=== PATIENT | male | born 1975 | race Caucasian/White ===

== ENCOUNTER 2017-05-23 09:11 | Emergency (ER) | payer OTHER, BC ==
[2017-05-23 09:14] VITALS: BP 122/37; PULSE 101; TEMP 98.2; BMI 21.7
[2017-05-23] MEDS ORDERED: IBUPROFEN 600 MG TABLET (FP) PO ONE ×2 (09:26→09:28)
--- NOTE | 2017-05-23 10:31 | PDOC ---
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 Hitting right side of lower back. Ambulatory to the ER. Nonradiating pain, no neurosensory deficits, no bowel or bladder difficulty incontinence or urinary retention, no saddle anesthesia, no footdrop. No history of IVDU or history of cancer. REVIEW OF SYSTEMS: GENERAL: Afebrile, denies any weakness RESPIRATORY: No cough, wheezing, or hemoptysis. CARDIAC: No chest pain or shortness of breath MUSCULOSKELETAL: Pain to generalized generalized lower back. No point tenderness. Pain worse on right than left. SKIN : No erythema, no bruising, no deformity. GI/: Denies any abdominal pain, no urinary difficulty, incontinence or urinary retention. RECTAL: Denies any difficulty this A.m. NEUROLOGICAL: Denies any numbness or tingling. No neurosensory deficits. PHYSICAL EXAM: GENERAL: The patient is awake, alert, and fully oriented, in no acute distress. RESPIRATORY: Lungs clear bilaterally, no rhonchi wheezes or crackles CARDIAC: S1-S2 audible, no murmur rub or gallop MUSCULOSKELETAL: Pain to generalized lower back, no direct spinal point tenderness, nonradiating, no tingling or sensory deficit. Less than 2 second cap refill, +4 popliteal and pedal pulses. Pain to right SI GI/: Abdomen soft, nontender, nondistended. No rebound tenderness. No masses palpable. MUSCULOSKELETAL: No spinal point tenderness. Normal reflexive and no deficits to sensation or strength. RECTAL: Deferred patient with no neurological findings SKIN: Warm, Dry, normal turgor, no erythema, no edema no bruising. Past History - Past Medical History Allergies/Adverse Reactions: Allergies Allergy/AdvReac Type Severity Reaction Status Date / Time No Known Allergies Allergy Verified 05/23/17 09:14 Home Medications: Ambulatory Orders Ibuprofen [Motrin -] 600 mg PO QID #28 tablet 05/23/17 Oxycodone HCl/Acetaminophen [Percocet 5-325 mg Tablet] 1 tab PO Q4H #20 tablet MDD 6 05/23/17 Other medical history: NONE - Psycho/Social/Smoking Cessation Hx Anxiety: No Suicidal Ideation: No Smoking History: Never smoked Hx Alcohol Use: No Drug/Substance Use Hx: No Substance Use Type: None *Physical Exam - Vital Signs Last Vital Signs Temp Pulse Resp BP Pulse Ox 98.2 F 101 H 20 122/37 100 05/23/17 09:12 05/23/17 09:12 05/23/17 09:12 05/23/17 09:12 05/23/17 09:12 ED Treatment Course - RADIOLOGY Radiology Studies Ordered: Category Date Time Status HIP & PELVIS-RIGHT [RAD] Stat Radiology 05/23/17 09:25 Completed SPINE-LUMBAR SACRAL [RAD] Stat Radiology 05/23/17 09:25 Completed - Medications Given in the ED: ED Medications Discontinued Medications Generic Name Dose Route Start Last Admin Trade Name Freq PRN Reason Stop Dose Admin Ibuprofen 600 mg 05/23/17 09:26 05/23/17 09:31 Motrin - PO 05/23/17 09:27 600 mg ONCE ONE Administration Medical Decision Making - Medical Decision Making 05/23/17 11:14 A/P: Patient with accidental fall, right lateral lower back pain, right SI pain. Sent to x-ray of lower back and right hip and pelvis, patient is refusing Toradol, Motrin given for pain. X-ray is negative for acute fracture dislocation will DC patient home with Motrin and Percocet, follow-up with occ med if time off. *DC/Admit/Observation/Transfer Diagnosis at time of Disposition: Accidental fall Qualifiers: Encounter type: initial encounter Qualified Code(s): W19.XXXA - Unspecified fall, initial encounter Back injury Qualifiers: Encounter type: initial encounter Qualified Code(s): S39.92XA - Unspecified injury of lower back, initial encounter - Discharge Dispostion Disposition: HOME Condition at time of disposition: Good Admit: No - Prescriptions Prescriptions: Ibuprofen [Motrin -] 600 mg PO QID #28 tablet Oxycodone HCl/Acetaminophen [Percocet 5-325 mg Tablet] 1 tab PO Q4H #20 tablet MDD 6 - Referrals Referrals: Jhonatan Cheung MD [Primary Care Provider] - - Patient Instructions Additional Instructions: 1. Please return to the emergency department with any numbness, tingling, weakness, numbness or tingling to groin or legs, or loss of bowel or bladder function. 2. Use pain medication as ordered. 3. Please is to followup in the office of [Eleuterio] for evaluation within a week if no improvement. 4. Ice or heat 5. Refrain from lifting anything above 10 pounds, until pain resolved. Follow up with occupational medicine if time off.
== END 2017-05-23 10:33 | disposition home or self-care (01) ==
LOC: JERFT 09:11
DX: S39.82XA Other specified injuries of lower back, initial encounter (principal); W10.8XXA Fall (on) (from) other stairs and steps, initial encounter; Y93.89 Activity, other specified; Y92.89 Other specified places as the place of occurrence of the external cause; Y99.0 Civilian activity done for income or pay
CPT/HCPCS: 72100-TC; 73523-TC; 99281-25

== ENCOUNTER 2019-08-21 08:59 | Emergency (ER) | payer OTHER ==
[2019-08-21 09:14] VITALS: BP 133/78; PULSE 81; TEMP 98.7; BMI 21.7
[2019-08-21] MEDS ORDERED: IBUPROFEN 600 MG TABLET (FP) PO ONE (10:19)
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
== END 2019-08-21 10:45 | disposition home or self-care (01) ==
LOC: JERFT 08:59
DX: S39.012A Strain of muscle, fascia and tendon of lower back, initial encounter (principal); V43.52XA Car driver injured in collision with other type car in traffic accident, initial encounter; Y92.412 Parkway as the place of occurrence of the external cause; Y93.89 Activity, other specified; Y99.8 Other external cause status
CPT/HCPCS: 99281-25